=== PATIENT | female | born 1970 | race Caucasian/White ===

== ENCOUNTER → 2018-12-22 | Outpatient (CLI) | payer BC, OTHER ==
[~2018-12-22] MED LIST: ALLO100 PO; CLIN300 PO; CYCL10 PO; DIAZ5 PO; DOANS; FLAX PO; FLUC150A PO; HYDACE5325 PO; IBUP800 PO; LEVSOD50 PO; MAG; OXYACE5T PO; PRED20 PO; RXOXYACE PO; THYR60 PO; TYL; Ultram50 MG PO; VANCOMYCIN 1 GM; ZOLP10 PO; Zofran Odt8 MG SL
== END | disposition home or self-care (01) ==
LOC: LAB EV 10:30 → LAB SHORT 10:30
DX: J02.9 Acute pharyngitis, unspecified (principal)
CPT/HCPCS: 87070; 87147

== ENCOUNTER → 2019-05-07 | Outpatient (CLI) | payer BC, OTHER ==
[~2019-05-07] MED LIST changes: +Armour Thyroid90 MG PO; +BACL10 PO; +CLOB.05TO TOP; +ESTRADIOL10 MCG VAG; +Elidel30 GM TOP; +MELO7.5 PO; +Norco 10-325 T1 EACH PO; +PROP60 PO; +Sudogest60 MG PO
[2019-05-09 15:06] LABS: HPV 16 Negative (Negative); HPV 18 Negative (Negative); HPV OTHER HR TYPES Negative (Negative)
== END | disposition home or self-care (01) ==
LOC: LAB 17:31 → LAB SHORT 17:31
PROVIDERS: Obstetrics & Gynecology Gynecology
DX: Z12.72 Encounter for screening for malignant neoplasm of vagina (principal)
CPT/HCPCS: 87624; G0123

== ENCOUNTER 2019-09-06 08:03 | Day surgery (SDC) | payer BC, OTHER ==
[~2019-09-06] VITALS: Ht 170.2 cm; Wt 99.1 kg
== END 2019-09-06 12:08 | disposition home or self-care (01) ==
LOC: ORSCSDS 08:03
PROVIDERS: Podiatrist Foot & Ankle Surgery
PROC: 0QSP04Z Reposition Left Metatarsal with Internal Fixation Device, Open Approach (ICD-10-PCS; principal; 2019-09-06 09:15)
PROC: 0QSR04Z Reposition Left Toe Phalanx with Internal Fixation Device, Open Approach (ICD-10-PCS; principal; 2019-09-06 09:15)
DX: M20.12 Hallux valgus (acquired), left foot (principal); M77.42 Metatarsalgia, left foot; M21.962 Unspecified acquired deformity of left lower leg; I10 Essential (primary) hypertension; E03.9 Hypothyroidism, unspecified; Z79.899 Other long term (current) drug therapy; E66.9 Obesity, unspecified; Z68.34 Body mass index [BMI] 34.0-34.9, adult
CPT/HCPCS: C1713; J0171; J0690; J1100; J1885; J2250; J2405; J2704; J3010

== ENCOUNTER → 2021-01-26 | Outpatient (CLI) | payer BC, OTHER ==
[~2021-01-26] MED LIST changes: +Clobetasol Prop50 GM; +Elidel30 GM; +PIMECROLIMUS30 GM TOP; +VALA500 PO
== END ==
LOC: LAB SHORT 09:00 → LAB 09:00
DX: L29.0 Pruritus ani (principal); Z88.1 Allergy status to other antibiotic agents; Z88.5 Allergy status to narcotic agent; Z91.040 Latex allergy status; Z91.013 Allergy to seafood; Z91.018 Allergy to other foods
CPT/HCPCS: 87177; 87209

== ENCOUNTER 2022-02-15 07:58 | Day surgery (SDC) | payer BC, OTHER ==
[~2022-02-15] VITALS: Ht 170.2 cm; Wt 96.2 kg
[~2022-02-15 07:58] MED LIST changes: +CLIN150 PO; +ESCI10 PO; +LORA10ER PO; +PANT40 PO
--- NOTE | 2022-02-15 08:22 | NUR ---
Ambulatory in Day Surgery History, Chart, Medications and Allergies reviewed before start of procedure. Lungs clear T/O to Auscultation. Patient confirms NPO status and agrees with scheduled surgery. Patient States Post-Procedure ride home has been arranged with [facility]. Pre-Op teaching done. Pt verbalizes understanding.
--- NOTE | 2022-02-15 08:56 | NUR ---
02/15/22 0856 Britney Edwards History, Chart, Medications and Allergies reviewed before start of procedure. Patient confirms NPO status and agrees with scheduled surgery. 3-LEAD EKG REVIEWED WITH PHYSICIAN PRIOR TO START OF PROCEDURE. MONITOR INTACT WITH CONTINUOUS PULSE OXIMETRY AND INTERMITTENT BP. PATIENT DETERMINED TO BE ASA APPROPRIATE FOR PROPOFOL SEDATION PRIOR TO START OF PROCEDURE BY . Bite Block Placed & REMOVED AT END OF CASE.
--- NOTE | 2022-02-15 10:52 | NUR ---
Patient up to Ambulate independently. Gait steady. Discharge instructions reviewed with patient. Patient verbalizes understanding. Copy given to patient to take home. Patient States Post-Procedure ride home has been arranged. Discharged via wheelchair to private car for ride home.
[2022-05-27] MEDS ORDERED: FERSU300 PO (09:53)
[2022-05-27] MEDS ORDERED: BACL10 PO (09:53)
[2022-05-27] MEDS ORDERED: PROP60 PO (09:53)
== END 2022-02-15 10:54 | disposition home or self-care (01) ==
LOC: ORSCMMR 07:58 → ORD 08:00 → ORSCMMR 08:00
PROVIDERS: Student in an Organized Health Care Education/Training Program
PROC: 0DB98ZX Excision of Duodenum, Via Natural or Artificial Opening Endoscopic, Diagnostic (ICD-10-PCS; principal; 2022-02-15 09:15)
PROC: 0DB78ZX Excision of Stomach, Pylorus, Via Natural or Artificial Opening Endoscopic, Diagnostic (ICD-10-PCS; principal; 2022-02-15 09:15)
PROC: 0DJD8ZZ Inspection of Lower Intestinal Tract, Via Natural or Artificial Opening Endoscopic (ICD-10-PCS; principal; 2022-02-15 09:15)
PROC: 0DB48ZX Excision of Esophagogastric Junction, Via Natural or Artificial Opening Endoscopic, Diagnostic (ICD-10-PCS; principal; 2022-02-15 09:15)
DX: K21.9 Gastro-esophageal reflux disease without esophagitis (principal); R10.13 Epigastric pain; K90.0 Celiac disease; Z12.11 Encounter for screening for malignant neoplasm of colon; K57.30 Diverticulosis of large intestine without perforation or abscess without bleeding; E03.9 Hypothyroidism, unspecified; M79.7 Fibromyalgia; Z79.899 Other long term (current) drug therapy
CPT/HCPCS: 43239; G0121; 88305; 88342; J2704; J7120

== ENCOUNTER 2022-06-06 13:10 | Day surgery (SDC) | payer BC, OTHER ==
[~2022-06-06] VITALS: Ht 170.2 cm; Wt 98.8 kg
[~2022-06-06 13:10] MED LIST changes: +FERSU300 PO
--- NOTE | 2022-06-06 13:50 | NUR ---
06/06/22 1350 Mo Garza MULTIPLE ATTEMPTS FOR IV. FIRST ATTEMPT IN RIGHT HAND FAILED. SECOND ATTEMPT IN RIGHT FOREARM FAILED. THIRD ATTEMPT IN RIGHT AC FAILED. FOURTH ATTEMPT IN RIGHT FOREARM SUCCESSFUL. PT VERY TENSE AND ANXIOUS, BUT COOPERATIVE.
== END 2022-06-06 14:41 | disposition home or self-care (01) ==
LOC: ORSCSDS 13:10
PROVIDERS: Student in an Organized Health Care Education/Training Program
PROC: 0DB68ZX Excision of Stomach, Via Natural or Artificial Opening Endoscopic, Diagnostic (ICD-10-PCS; principal; 2022-06-06 14:30)
DX: K92.1 Melena (principal); M79.7 Fibromyalgia; E03.9 Hypothyroidism, unspecified; L53.9 Erythematous condition, unspecified; Z79.899 Other long term (current) drug therapy
CPT/HCPCS: 88305; 88342; J2704

== ENCOUNTER → 2025-08-24 | Outpatient (CLI) | payer BC, OTHER | LOC: LAB SHORT 11:50 → LAB 11:50 | DX: N39.0 Urinary tract infection, site not specified (principal) | CPT/HCPCS: 87077; 87086; 87186 ==

== ENCOUNTER → 2025-09-02 | Outpatient (CLI) | payer BC, OTHER | LOC: LAB SHORT 18:01 → LAB 18:01 | DX: R30.0 Dysuria (principal) | CPT/HCPCS: 87086 ==